=== PATIENT | male | born 1995 | race Caucasian/White ===

== ENCOUNTER 2018-11-11 13:35 | Emergency (ER) | payer BC ==
[2018-11-11 14:54] VITALS: BP 122/70
--- NOTE | 2018-11-11 15:03 | UC ---
Eye Complaint HPI - HPI Summary HPI Summary: 23 y/o male presents to the urgent care c/o B/L eye redness w/ yellowish drainage for the past 2 days. Pt reports symptoms started w/ mild nasal congestion and mild sore throat. He woke up yesterday w/ B/L eye redness and yellowish eye crusting and a dry feeling. Pt denies visual disturbance, photophobia, eye pain, fever, SOB, chest pain abdominal pain, N/V/D. - History of Current Complaint Chief Complaint: UCEye Stated Complaint: BILATERAL EYE COMPLAINT Time Seen by Provider: 11/11/18 15:00 Hx Obtained From: Patient Onset/Duration: Gradual Onset, Lasting Days - 1 day, Still Present, Worse Since - this morning Timing: Constant Severity Initially: Mild Severity Currently: Mild Pain Intensity: 0 Pain Scale Used: 0-10 Numeric Location of Injury: Conjunctiva - B/L eye redness Character: Foreign Body Sensation Aggravating Factor(s): Blinking Alleviating Factor(s): Nothing Associated Signs And Symptoms: Positive: Drainage (Purulent). Negative: Fever, Swelling - Risk Factors Penetrating Injury Risk Factor: Negative Globe Rupture Risk Factors: Negative Acute Glaucoma Risk Factors: Negative Optic Artery Occlusion Risk Factors: Negative - Allergies/Home Medications Allergies/Adverse Reactions: Allergies Allergy/AdvReac Type Severity Reaction Status Date / Time No Known Allergies Allergy Verified 11/11/18 14:54 Home Medications: Home Medications Escitalopram Oxalate [Lexapro] 20 mg PO DAILY 11/11/18 [History Confirmed ] PMH/Surg Hx/FS Hx/Imm Hx Previously Healthy: Yes Psychological History: Anxiety - Surgical History Surgical History: None - Family History Family History: Anxiety - Social History Occupation: Employed Full-time Lives: With Family Alcohol Use: Occasionally Substance Use Type: None Smoking Status (MU): Never Smoked Tobacco - Immunization History Vaccination Up to Date: Yes Review of Systems All Other Systems Reviewed And Are Negative: Yes Constitutional: Positive: Negative Skin: Positive: Negative Eyes: Positive: Drainage - yellowish crusting, Eye Redness - B/L eye ENT: Positive: Negative Respiratory: Positive: Negative Cardiovascular: Positive: Negative Gastrointestinal: Positive: Negative Genitourinary: Positive: Negative Motor: Positive: Negative Neurovascular: Positive: Negative Musculoskeletal: Positive: Negative Neurological: Positive: Negative Psychological: Positive: Negative Is Patient Immunocompromised?: No Physical Exam - Summary Physical Exam Summary: Vital Signs Reviewed: Yes General: Well appearing, well nourished adolescent male in no apparent pain distress Eyes: Positive:B/L Conjunctiva Inflamed - Visual acuity: WNL,Visual ku: full to confrontation.PERRLA, EOMI intact w/out limitation or complaint of pain. eyelashes clear. mild tearing and yellowish drainage observed. No ciliary flush. No chemosis, No photophobia. Normal fundoscopic exam; no proptosis, exophthalmos, nystagmus. ENT: Positive: Normal ENT inspection, Hearing grossly normal, Pharynx normal, Nasal congestion, Nasal drainage - clear, TMs normal - B/L external ear canal clear , TM's WNL. Negative: Tonsillar swelling, Tonsillar exudate Neck: Positive: Supple, Nontender, No Lymphadenopathy Respiratory: Positive: Chest nontender, Lungs clear, Normal breath sounds, No respiratory distress Cardiovascular: Positive: RRR, No Murmur, Pulses Normal, Brisk Capillary Refill Abdomen Description: Positive: Nontender, No Organomegaly, Soft. Negative: CVA Tenderness (R), CVA Tenderness (L) Bowel Sounds: Positive: Present Musculoskeletal: Positive: Strength Intact, ROM Intact, No Edema Neurological Exam: Normal Psychological Exam: Normal Skin Exam: Normal Triage Information Reviewed: Yes Vital Signs: Initial Vital Signs Temp 97.3 F 11/11/18 14:49 Pulse 77 11/11/18 14:49 Resp 16 11/11/18 14:49 BP 122/70 11/11/18 14:49 Pulse Ox 100 11/11/18 14:49 Eye Complaint Course/Dx - Course Course Of Treatment: 23 y/o male presents to the urgent care c/o B/L eye redness w/ yellowish drainage for the past 2 days. Pt reports symptoms started w/ mild nasal congestion and mild sore throat. He woke up yesterday w/ B/L eye redness and yellowish eye crusting and a dry feeling. Pt denies visual disturbance, photophobia, eye pain, fever, SOB, chest pain abdominal pain, N/V/D. Hx obtained. PE abnormal findings: B/L PERRLA, EOMI, fundi grossly normal, no tender to palpation. B/L conjunctiva moderately injected, yellowish discharge , Most likely Bacterial conjunctivitis. Pt Rx Ofloxacin ophthalmic drops and advised if symptoms do not improve or worsen to f/u with Photogrammetry [employer] Dr Vergara in 3 days. Pt understood and agreed w/ plan of care - Differential Dx/Diagnosis Differential Diagnosis/HQI/PQRI: Conjunctivitis, Periorbital Cellulitis, Orbital Cellulitis, Uveitis Provider Diagnosis: Bacterial conjunctivitis of both eyes Discharge - Sign-Out/Discharge Documenting (check all that apply): Patient Departure - D/C home All imaging exams completed and their final reports reviewed: No Studies - Discharge Plan Condition: Stable Disposition: HOME Prescriptions: Ofloxacin 0.3% (Ear Drop)* [Floxin 0.3% [id number] (Ear Drop)] 1 drop BOTH EARS QID #1 btl Patient Education Materials: Conjunctivitis (ED) Referrals: Connie Erickson PA [Primary Care Provider] - 3 Days Karina Vergara MD [Medical Doctor] - If Needed Additional Instructions: 1-Please apply ophthalmic drops as instructed and finish the full course of treatment to avoid recurrent infection. Encourage hand washing to avoid spreading infection 2-If you do not improve or if symptoms worsen please f/u with wet room worker DR Vergara in 3 days for further evaluation and treatment - Billing Disposition and Condition Condition: STABLE Disposition: Home
== END 2018-11-11 15:34 | disposition home or self-care (01) ==
LOC: UCCORT 13:35
DX: H10.33 Unspecified acute conjunctivitis, bilateral (principal); F41.9 Anxiety disorder, unspecified
CPT/HCPCS: 99202; G0463